=== PATIENT | male | born 1985 | race American Indian/Alaskan Native ===

== ENCOUNTER 2020-02-24 22:48 | Emergency (ER) | payer SELFPAY ==
--- NOTE | 2020-02-24 23:44 | XRay Report ---
CHEST 1 VIEW INDICATION / CLINICAL INFORMATION: Chest Pain. COMPARISON: None available. FINDINGS: SUPPORT DEVICES: None. HEART / MEDIASTINUM: No significant abnormality. LUNGS / PLEURA: No significant pulmonary or pleural abnormality. No pneumothorax. ADDITIONAL FINDINGS: No significant additional findings. IMPRESSION: 1. No acute findings. Signer Name: Sammie Escamilla MD Signed: 02/24/2020 11:39 PM Workstation Name: [id number]
[2020-02-24 23:47] LABS: Basophils % (Auto) 0.1 % (0.0-1.8); Hematocrit 44.1 % (35.5-45.6); Hemoglobin 15.5 gm/dl (11.8-15.2); Lymphocytes # (Auto) 0.9 K/mm3 (1.2-5.4); Lymphocytes % (Auto) 5.5 % (13.4-35.0); Mean Corpuscular HGB Conc 35 % (32-34); Mean Corpuscular Volume 82 fl (84-94); Monocytes # (Auto) 0.7 K/mm3 (0.0-0.8); Monocytes % (Auto) 4.5 % (0.0-7.3); Platelet Count 286 K/mm3 (140-440); Red Blood Count 5.39 M/mm3 (3.65-5.03); Red Cell Distribution Width 13.3 % (13.2-15.2)
[2020-02-25 00:07] LABS: BUN/Creatinine Ratio 14; Blood Urea Nitrogen 14 mg/dL (9-20); Calcium 9.9 mg/dL (8.4-10.2); Hemolysis Index 5
[2020-02-25] MEDS ORDERED: SODIUM CHLORIDE 0.9% 1000 ML 1,000 ML IV ONE (00:14)
[2020-02-25] MEDS ORDERED: ONDANSETRON 4 MG/2 ML INJ IV ONE (00:14)
[2020-02-25] MEDS ORDERED: DICYCLOMINE 20 MG/2 ML INJ IM ONE (00:14)
[2020-02-25] MEDS ORDERED: FAMOTIDINE 20 MG/2 ML INJ IV ONE (00:14)
--- NOTE | 2020-02-25 01:19 | Cat Scan Report ---
CT abdomen pelvis w con INDICATION / CLINICAL INFORMATION: MAIN: NVD abd pain 100CC [id number]. TECHNIQUE: Axial CT imaging of abdomen and pelvis was obtained with IV contrast. Coronal and sagittal reformatte d imaging obtained and reviewed. All CT scans at this location are performed using CT dose reduction for ALARA by means of automated exposure control. COMPARISON: None available. FINDINGS: CT abdomen with contrast demonstrates normal appearance of the liver, spleen, pancreas, right kidney, adrenal glands, and gallbladder. No biliary dilatation. The left kidney is absent. Small hiatal jazmin ia. CT pelvis with contrast does not demonstrate any mass, free fluid, or focal inflammatory change. GI t ract is grossly unremarkable. The appendix is not identified. Visualized lung bases are clear. No significant acute osseous abnormality. . IMPRESSION: 1. No acute finding within the abdomen or pelvis. 2. Absent left kidney.. Signer Name: Sammie Escamilla MD Signed: 02/25/2020 1:14 AM Workstation Name: [id number]
--- NOTE | 2020-02-25 01:30 | Emergency Department Report ---
ED Abdominal Pain HPI - General Chief Complaint: Abdominal Pain Stated Complaint: VOMITING,ABDOMINAL PAIN Time Seen by Provider: 02/25/20 00:13 Source: patient Mode of arrival: Ambulatory Limitations: No Limitations - History of Present Illness Initial Comments: Patient is a 34-year-old gentleman who is presenting with epigastric pain and nausea vomiting. Patient states he is had the symptoms for last several hours and believes it may be from a sandwich that he ate. Patient is has accompanying diaphoresis. Pain is epigastric and does radiate into the chest. States it is 8 out of 10 in severity. He denies any hematochezia or hematemesis. Patient denies cough cold or congestion at this time. Location: epigastric Severity scale (0 -10): 8 Quality: cramping, stabbing, sharp Consistency: constant Improves With: nothing Worsens With: nothing Associated Symptoms: nausea, vomiting, chills. denies: diarrhea - Related Data Previous Rx's Medication Instructions Recorded Last Taken Type Dicyclomine [Bentyl] 20 mg PO QID #10 tablet 02/25/20 Unknown Rx Famotidine [Pepcid] 40 mg PO QHS #10 tablet 02/25/20 Unknown Rx Ondansetron [Zofran Odt] 4 mg PO Q8HR #10 tab.rapdis 02/25/20 Unknown Rx Allergies Allergy/AdvReac Type Severity Reaction Status Date / Time aspirin Allergy Unknown Verified 02/24/20 22:59 ED Review of Systems ROS: Stated complaint: VOMITING,ABDOMINAL PAIN Other details as noted in HPI Comment: All other systems reviewed and negative ED Past Medical Hx - Past Medical History Previous Medical History?: No - Surgical History Past Surgical History?: No - Social History Smoking Status: Current Every Day Smoker Substance Use Type: Alcohol, Marijuana - Medications Home Medications: Home Medications Medication Instructions Recorded Confirmed Last Taken Type Dicyclomine [Bentyl] 20 mg PO QID #10 tablet 02/25/20 Unknown Rx Famotidine [Pepcid] 40 mg PO QHS #10 tablet 02/25/20 Unknown Rx Ondansetron [Zofran Odt] 4 mg PO Q8HR #10 tab.rapdis 02/25/20 Unknown Rx ED Physical Exam - General Limitations: No Limitations General appearance: alert, in distress - Head Head exam: Present: atraumatic, normocephalic - Eye Eye exam: Present: normal appearance, PERRL, EOMI - ENT ENT exam: Present: mucous membranes moist - Neck Neck exam: Present: normal inspection - Respiratory Respiratory exam: Present: normal lung sounds bilaterally. Absent: respiratory distress, wheezes, rales, rhonchi - Cardiovascular Cardiovascular Exam: Present: regular rate, normal rhythm, normal heart sounds. Absent: systolic murmur, diastolic murmur, rubs, gallop - GI/Abdominal GI/Abdominal exam: Present: soft, tenderness, guarding, normal bowel sounds. Absent: distended, rebound, rigid - Rectal Rectal exam: Present: deferred - Extremities Exam Extremities exam: Present: normal inspection - Back Exam Back exam: Present: normal inspection - Neurological Exam Neurological exam: Present: alert, oriented X3 - Psychiatric Psychiatric exam: Present: normal affect, normal mood - Skin Skin exam: Present: warm, dry, intact, normal color. Absent: rash ED Course Vital Signs 02/24/20 02/24/20 02/25/20 22:52 23:00 00:26 Temperature 99.3 F Pulse Rate 97 H Respiratory 18 Rate Blood Pressure 150/99 Blood Pressure 144/94 [Left] O2 Sat by Pulse 100 100 Oximetry 02/25/20 02/25/20 00:30 00:40 Temperature Pulse Rate 77 Respiratory 21 19 Rate Blood Pressure 163/104 Blood Pressure [Left] O2 Sat by Pulse 100 Oximetry ED Medical Decision Making - Lab Data Result diagrams: 02/24/20 23:12 02/24/20 23:12 Lab Results 02/24/20 02/24/20 Range/Units 23:12 23:12 WBC 16.1 H (4.5-11.0) K/mm3 RBC 5.39 H (3.65-5.03) M/mm3 Hgb 15.5 H (11.8-15.2) gm/dl Hct 44.1 (35.5-45.6) % MCV 82 L (84-94) fl MCH 29 (28-32) pg MCHC 35 H (32-34) % RDW 13.3 (13.2-15.2) % Plt Count 286 (140-440) K/mm3 Lymph % (Auto) 5.5 L (13.4-35.0) % [place] % (Auto) 4.5 (0.0-7.3) % Eos % (Auto) 0.0 (0.0-4.3) % Baso % (Auto) 0.1 (0.0-1.8) % Lymph # 0.9 L (1.2-5.4) K/mm3 [place] # 0.7 (0.0-0.8) K/mm3 Eos # 0.0 (0.0-0.4) K/mm3 Baso # 0.0 (0.0-0.1) K/mm3 Seg Neutrophils % 89.9 H (40.0-70.0) % Seg Neutrophils # 14.5 H (1.8-7.7) K/mm3 Sodium 138 (137-145) mmol/L Potassium 4.0 (3.6-5.0) mmol/L Chloride 98.1 (98-107) mmol/L Carbon Dioxide 22 (22-30) mmol/L Anion Gap 22 mmol/L BUN 14 (9-20) mg/dL Creatinine 1.0 (0.8-1.5) mg/dL Estimated GFR > 60 ml/min BUN/Creatinine Ratio 14 % Glucose 153 H (75-100) mg/dL Calcium 9.9 (8.4-10.2) mg/dL Troponin T < 0.010 (0.00-0.029) ng/mL Lipase 15 (13-60) units/L - Radiology Data [facility] [address] [place] [address] Cat Scan Report Signed Patient: AYDEE JORGENSEN MR#: [id number] : 1985 Acct:[id number] Age/Sex: 34 / M ADM Date: 02/24/20 Loc: ED Attending Dr: Ordering Physician: RONNY DRAPER MD Date of Service: 02/25/20 Procedure(s): CT abdomen pelvis w con Accession Number(s): [id number] cc: RONNY DRAPER MD CT abdomen pelvis w con INDICATION / CLINICAL INFORMATION: MAIN: NVD abd pain 100CC [id number]. TECHNIQUE: Axial CT imaging of abdomen and pelvis was obtained with IV contrast. Coronal and sagittal reformatted imaging obtained and reviewed. All CT scans at this location are performed using CT dose reduction for ALARA by means of automated exposure control. COMPARISON: None available. FINDINGS: CT abdomen with contrast demonstrates normal appearance of the liver, spleen, pancreas, right kidney, adrenal glands, and gallbladder. No biliary dilatation. The left kidney is absent. Small hiatal hernia. CT pelvis with contrast does not demonstrate any mass, free fluid, or focal inflammatory change. GI tract is grossly unremarkable. The appendix is not identified. Visualized lung bases are clear. No significant acute osseous abnormality. . IMPRESSION: 1. No acute finding within the abdomen or pelvis. 2. Absent left kidney.. Signer Name: Sammie Escamilla MD Signed: 02/25/2020 1:14 AM Workstation Name: [facility] - Medical Decision Making Patient's CT shows no surgical abnormality. Patient was hydrated and given antiemetics and antispasmodic medications. He is starting to feel better. Patient after fluids administered will be discharged home. Critical care attestation.: If time is entered above; I have spent that time in minutes in the direct care of this critically ill patient, excluding procedure time. ED Disposition Clinical Impression: Acute gastritis Qualifiers: Gastritis type: unspecified gastritis Gastritis bleeding: without bleeding Qualified Code(s): K29.00 - Acute gastritis without bleeding Disposition: DC-01 TO HOME OR SELFCARE Is pt being admited?: No Does the pt Need Aspirin: No Condition: Stable Instructions: Gastritis (ED) Referrals: PRIMARY CARE, [Primary Care Provider] - 3-5 Days Time of Disposition: 01:30
[2020-02-25 02:34] VITALS: BP 141/87
== END 2020-02-25 02:35 | disposition home or self-care (01) ==
LOC: ED 22:48
DX: K29.00 Acute gastritis without bleeding (principal); F17.200 Nicotine dependence, unspecified, uncomplicated; F12.10 Cannabis abuse, uncomplicated; Z88.6 Allergy status to analgesic agent
CPT/HCPCS: 36415; 71045; 74177; 80048; 83690; 84484; 85025; 93005; 96361; 96372; 96374; 96375; 99285; J0500; J2405; J7030; Q9967